=== PATIENT | female | born 1990 | race Caucasian/White ===

== ENCOUNTER → 2017-03-29 | Outpatient (REF) | payer OTHER ==
[~2017-03-29] MED LIST: ACET50TA PO; COLA100C5 PO; FLINCHW9 PO; IBUP60TA PO; MOM30SS PO; MOTR200T44 PO; PREN1TAB11 PO; TYLE325T5 PO
== END ==
LOC: M SFHCWAGY 09:08
PROVIDERS: ATTEND Nurse Practitioner Family
DX: Z12.4 Encounter for screening for malignant neoplasm of cervix (principal)

== ENCOUNTER → 2017-05-02 | Outpatient (REF) | payer OTHER | LOC: M LAB REF 19:33 | DX: J02.9 Acute pharyngitis, unspecified (principal) ==

== ENCOUNTER → 2019-04-07 | Outpatient (REF) | payer OTHER ==
[~2019-04-07] MED LIST changes: -ACET50TA PO; +IBUP600T42 PO; -IBUP60TA PO; +MAPA500T2 PO
== END ==
LOC: M PLALAB 15:06
PROVIDERS: ATTEND Nurse Practitioner Family
DX: Z12.4 Encounter for screening for malignant neoplasm of cervix (principal); R87.612 Low grade squamous intraepithelial lesion on cytologic smear of cervix (LGSIL)
CPT/HCPCS: 87624; G0123

== ENCOUNTER → 2020-07-30 | Outpatient (REF) | payer OTHER ==
[2020-07-30 18:02] LABS: HEMATOCRIT 32.8 % (36.0-47.0); HEMOGLOBIN 10.9 g/dl (12.0-15.5); MEAN CORPUSCULAR HEMOGLOBIN 30.1 pg (27.0-33.0); MEAN CORPUSCULAR HGB CONC 33.2 g/dl (32.0-36.5); MEAN CORPUSCULAR VOLUME 90.6 fl (80.0-96.0); PLATELET COUNT, AUTOMATED 187 10^3/uL (150-450); RED BLOOD COUNT 3.62 10^6/uL (4.00-5.40); WHITE BLOOD COUNT 8.6 10^3/uL (4.0-10.0)
[2020-07-30 18:54] LABS: HEPATITIS C VIRUS ABY INDEX < 0.0 INDEX (<0.8); HIV 1&2 SCREEN CENTAUR NEGATIVE (NEGATIVE)
[2020-07-30 20:31] LABS: CHLAMYDIA DNA AMPLIFICATION NEGATIVE (NEGATIVE); GC DNA AMPLIFICATION NEGATIVE (NEGATIVE)
== END ==
LOC: M PLALAB 15:08
PROVIDERS: ATTEND Advanced Practice Midwife
DX: Z36.89 Encounter for other specified antenatal screening (principal)

== ENCOUNTER → 2020-09-30 | Outpatient (CLI) | payer OTHER | LOC: M WHC 14:20 | PROVIDERS: ATTEND Advanced Practice Midwife | DX: Z53.8 Procedure and treatment not carried out for other reasons (principal) ==

== ENCOUNTER → 2020-10-10 | Outpatient (CLI) | payer OTHER ==
--- NOTE | 2020-10-10 09:03 | REP ---
INDICATION: ANATOMY. COMPARISON: None. TECHNIQUE: Real-time sonographic evaluation of the gravid uterus performed. FINDINGS: Estimated gestational age is19 weeks 4 days, EDC 03/02/2021. Today's measurements indicate appropriate growth. Presentation: Variable Placenta posterior, grade 1, without evidence of placenta previa. heart rate is recorded at 158 beats per minute. Amniotic fluid is subjectively normal. Closed cervical length is measured at 4.7 cm. Biometry chart: BPD: 43 mm, 19 weeks 0 days, 34th percentile. HC: 164 mm, 19 weeks 1 days, 37th percentile AC: 134 mm, 18 weeks 6 days, 36th percentile Femur length: 28 mm, 18 weeks 4 days, 26th percentile HC to AC ratio: 1.22, normal range 1.06-1.25. Estimated weight: 259g, 12th percentile. anatomy: Cranium: Grossly normal Lateral Ventricles/Choroid Plexus: Grossly normal Posterior Fossa/Cerebellum: Grossly normal Nose/lips/profile: Grossly normal Four chamber heart: Not well seen due to position Right ventricular outflow tract: Not well seen due to position Left ventricular outflow tract: Not well seen due to position Left-sided stomach: Grossly normal Kidneys: Grossly normal Bladder: Grossly normal Cord Insertion: Grossly normal 3 vessel cord: Grossly normal Spine: Grossly normal IMPRESSION: Viable single intrauterine gestation as above. <Electronically signed by David Santa > 10/10/20 [id number]
== END ==
LOC: M WHC 07:29
PROVIDERS: ATTEND Advanced Practice Midwife
DX: Z36.89 Encounter for other specified antenatal screening (principal); Z3A.19 19 weeks gestation of pregnancy

== ENCOUNTER → 2020-11-14 | Outpatient (CLI) | payer OTHER ==
--- NOTE | 2020-11-14 08:27 | REP ---
INDICATION: F/U ANATOMY. COMPARISON: Comparison study October 10, 2020.. TECHNIQUE: Transabdominal obstetric sonography. FINDINGS: Scanning through the gravid uterus demonstrates a viable single intrauterine gestation in cephalic lie. motion is observed and heart rate is recorded at 129 beats per minute. A posterior placenta is seen, grade 1, without evidence of placenta previa. Closed cervical length is not well seen due to head position. No extrauterine abnormality is observed. Amniotic fluid is subjectively normal. No anomaly is seen. The following anatomic structures are identified and felt to be sonographically unremarkable: cranium, choroid plexus, cavum, cerebellum and posterior fossa, face and profile, lungs, four-chamber heart with left and right ventricular outflow tract views, diaphragm, left-sided stomach, abdominal wall cord insertion, three-vessel umbilical cord, kidneys and bladder, spine, and upper and lower extremities. Biometry chart: BPD 6.0 cm, 24 weeks 4 days Head circumference 22.6 cm, 24 weeks 5 days Abdominal circumference 19.5 cm, 24 weeks 1 day Femur length 4.3 cm, 24 weeks 0 days Humeral length 3.9 cm, 24 weeks 0 days HC AC ratio normal 1.16 Cephalic index normal 0.73 Estimated weight 671 g, 1 lb 7 oz, 37th percentile for 34 weeks 2 days IMPRESSION: Viable single intrauterine gestation at 24 weeks 2 days by today's composite sonographic criteria. LIANET by today's sonography March 04, 2021. No complication identified. Expected gestational age estimate based on known LIANET of 04 March 2021 is 24 weeks 2 days. In conjunction with the prior study, anatomic survey is felt to be complete. <Electronically signed by Bert Vernon > 11/14/20 2034
== END ==
LOC: M WHC 07:21
PROVIDERS: ATTEND Advanced Practice Midwife
DX: Z34.92 Encounter for supervision of normal pregnancy, unspecified, second trimester (principal); Z3A.24 24 weeks gestation of pregnancy

== ENCOUNTER → 2020-11-27 | Outpatient (CLI) | payer OTHER ==
[2020-11-27 13:45] LABS: HEMATOCRIT 35.6 % (36.0-47.0); HEMOGLOBIN 11.6 g/dl (12.0-15.5); MEAN CORPUSCULAR HGB CONC 32.6 g/dl (32.0-36.5); MEAN CORPUSCULAR VOLUME 95.2 fl (80.0-96.0); PLATELET COUNT, AUTOMATED 154 10^3/uL (150-450); RED BLOOD COUNT 3.74 10^6/uL (4.00-5.40); WHITE BLOOD COUNT 10.4 10^3/uL (4.0-10.0)
== END ==
LOC: M PLALAB 10:05
PROVIDERS: ATTEND Advanced Practice Midwife
DX: Z34.92 Encounter for supervision of normal pregnancy, unspecified, second trimester (principal)

== ENCOUNTER → 2021-01-31 | Outpatient (REF) | payer OTHER | LOC: M SFHCWAGY 17:07 | PROVIDERS: ATTEND Advanced Practice Midwife | DX: Z34.93 Encounter for supervision of normal pregnancy, unspecified, third trimester (principal) ==

== ENCOUNTER 2021-02-22 17:13 | Inpatient (IN) | payer OTHER ==
[~2021-02-22] VITALS: Ht 157.5 cm; Wt 59.7 kg
[2021-02-22] VITALS (27 sets, daily range): BP systolic 114–140; BP diastolic 57–80
[2021-02-22] MEDS ORDERED: HOME MED LIST COMPLETE! XX SCH (17:55)
[2021-02-22] MEDS ORDERED: LACTATED RINGER'S 1000 ML IV STA (18:14)
--- OUTSIDE RECORDS SUMMARY | 2021-02-22 18:14 | CCD ---
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 41809 01 ALLERGIES Allergen (clinical drug ingredient) Drug/Non Drug Allergy do cumented on EMR Reaction Allergy Type Onset Date Status poison rené cont rash Non Drug Allergy Active ENCOUNTERS from 1989 to 2020-11-28 Encounter Location Date Provider Diagnosis [facility] [address] [place] [address] [place] [address] Nov, Rima Hobbssandrine Encounter for sup ervision of other normal in second trimester Z34.82 and 26 weeks gestation of Z3A.26 IMMUNIZATIONS No Information SOCIAL HISTORY Tobacco Use: Social History Observation Description Date Details (start date - stop date) Never Smoker Sex Assigned At : Social History Observation Description Sex Assigned At Unknown Education: Question Answer Notes Level of Education: College Roman Catholic: Question Answer Notes Roman Catholic 21 Yarsani Tobacco Use: Question Answer Notes Are you a: never smoker never smoker REASON FOR REFERRAL No Information VITAL SIGNS Weight 120 lbs Nov, Weight-kg 54.43 kg Nov, Height 62.5 in Nov, BMI 21.599 kg/m2 Nov, Blood pressure systolic 112 mm Hg Nov, Blood pressure diastolic 58 mm Hg Nov, MEDICATIONS Medication SIG (Take, Route, Frequency, Duration) Notes Start Da te End Date Status Azelex 20 % 1 application Externally Twice a day to face for 30 days Sep, Active Iron 325 (65 Fe) MG 1 tablet Orally Once a day Active Multivital-M Not-Taking 27-1 MG 1 tablet Orally Once a day Active ZyrTEC Allergy 10 MG 1 tablet Orally Once a day as needed Not-Taking PROCEDURES No Information RESULTS No Results REASON FOR VISIT 4 wk pn MEDICAL (GENERAL) HISTORY Type Description Date Medical History 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) Medical History seasonal allergies Surgical History bunionectomy right foot 06/16/12 Hospitalization History childbirth Goals Section No Information Health Concerns No Information MEDICAL EQUIPMENT No Information MENTAL STATUS No Information FUNCTIONAL STATUS No Information ASSESSMENTS Encounter Date Diagnosis Assessment Notes Treatment Notes Treatm ent Clinical Notes Nov, Encounter for supervision of other normal in second trimester (ICD-10 - Z34.82) Nov, 26 weeks gestation of (ICD-10 - Z3A.26 ) PLAN OF TREATMENT Next Appt Details 4 Weeks Reason:- Routine follow up Provider Name:Rah Swan, 11:00:00 AM, [address] [facility] [phone], [place], [address], Provider Name:Seble Colvin, 01:45:00 PM, [address] [facility], , [place], [address], Follow Up:4 Weeks- Routine follow up Insurance Providers Payer Name Payer Address Payer Phone Insured Name Patient Relati onship to Insured Coverage Start Date Coverage End Date [facility] [address] [address] [facility] [phone] MERCEDES PAUL self
--- OUTSIDE RECORDS SUMMARY | 2021-02-22 18:14 | CCD ---
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 confirmed 115028595 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 06503 01 ALLERGIES Allergen (clinical drug ingredient) Drug/Non Drug Allergy do cumented on EMR Reaction Allergy Type Onset Date Status poison rené cont rash Non Drug Allergy Active ENCOUNTERS from 1989 to 2021-01-31 Encounter Location Date Provider Diagnosis [facility] [address] [place] [address] [place] [address] Jan, Margareth Salazar Encounter for superv ision of normal in third trimester Z34.93 IMMUNIZATIONS No Information SOCIAL HISTORY Tobacco Use: Social History Observation Description Date Details (start date - stop date) Never Smoker Sex Assigned At : Social History Observation Description Sex Assigned At Unknown Education: Question Answer Notes Level of Education: College Baptism: Question Answer Notes Baptism 21 Caodaism Alcohol Screening: Question Answer Notes Did you have a drink containing alcohol in the past year? No Points 0 Interpretation Negative Tobacco Use: Question Answer Notes Are you a: never smoker never smoker REASON FOR REFERRAL No Information VITAL SIGNS Weight 131.2 lbs Jan, Weight-kg 59.51 kg Jan, Height 62.5 in Jan, BMI 23.614 kg/m2 Jan, Blood pressure systolic 114 mm Hg Jan, Blood pressure diastolic 60 mm Hg Jan, MEDICATIONS Medication SIG (Take, Route, Frequency, Duration) Notes Start Da te End Date Status Azelex 20 % 1 application Externally Twice a day to face for 30 days Sep, Active ZyrTEC Allergy 10 MG 1 tablet Orally Once a day as needed Not-Taking Iron 325 (65 Fe) MG 1 tablet Orally Once a day Active 27-1 MG 1 tablet Orally Once a day Active Multivital-M Not-Taking PROCEDURES No Information RESULTS No Results REASON FOR VISIT 2 WK PN MEDICAL (GENERAL) HISTORY Type Description Date Medical [...] Notes Treatment Notes Treatm ent Clinical Notes Jan, Encounter for supervision of normal in third trimester (ICD-10 - Z34.93) PLAN OF TREATMENT Treatment Notes Test Name Order Date GROUP B STREP CULTURE 2021-01-31 Next Appt Details 1 Week Reason: Provider Name:Nika Linn, 2021-02-07 02:40:00 PM, [address] [place] [address] , [place], [address], Provider Name:Seble Colvin, 01:00:00 PM, [address] [place] [address], , [place], [address], Provider Name:Con Velázquez, 2021-02-14 01:15:00 PM, [address] [place] [address] , [place], [address], Provider Name:Nika Linn, 2021-02-21 01:40:00 PM, [address] [place], [place] [id number], [place], [address], Provider Name:Nika Linn, 2021-02-28 01:40:00 PM, [address] [facility], , [place], [address], Provider Name:Seble Colvin, 01:45:00 PM, [address] [facility], , [place], [address], Insurance Providers Payer Name Payer Address Payer Phone Insured Name Patient Relati onship to Insured Coverage Start Date Coverage End Date [facility] [address] [address] [facility] [phone] MERCEDES PAUL self
--- OUTSIDE RECORDS SUMMARY | 2021-02-22 18:14 | CCD ---
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 04716 01 ALLERGIES Allergen (clinical drug ingredient) Drug/Non Drug Allergy do cumented on EMR Reaction Allergy Type Onset Date Status poison rené cont rash Non Drug Allergy Active ENCOUNTERS from 1989 to 2021-01-07 Encounter Location Date Provider Diagnosis [facility] [address] [place] [address] [place] [address] Dec, Rah Swan Encounter for pregna ncy related examination in third trimester Z34.93 and 31 weeks gestation of Z3A.31 IMMUNIZATIONS No Information SOCIAL HISTORY Tobacco Use: Social History Observation Description Date Details (start date - stop date) Never Smoker Sex Assigned At : Social History Observation Description Sex Assigned At Unknown Education: Question Answer Notes Level of Education: College Taoism: Question Answer Notes Taoism 21 Mormon Tobacco Use: Question Answer Notes Are you a: never smoker never smoker REASON FOR REFERRAL No Information VITAL SIGNS Weight 126.2 lbs Dec, Height 62.5 in Dec, BMI 22.714 kg/m2 Dec, Blood pressure systolic 110 mm Hg Dec, Blood pressure diastolic 70 mm Hg Dec, MEDICATIONS Medication SIG (Take, Route, Frequency, Duration) Notes Start Da te End Date Status Multivital-M Not-Taking Iron 325 (65 Fe) MG 1 tablet Orally Once a day Active Azelex 20 % 1 application Externally Twice a day to face for 30 days Sep, Active ZyrTEC Allergy 10 MG 1 tablet Orally Once a day as needed Not-Taking 27-1 MG 1 tablet Orally Once a day Active PROCEDURES No Information RESULTS No Results REASON [...] Notes Treatment Notes Treatm ent Clinical Notes Dec, Encounter for rela idalia examination in third trimester (ICD-10 - Z34.93) Dec, 31 weeks gestation of (ICD-10 - Z3A.31 ) PLAN OF TREATMENT Next Appt Details 2 Weeks Reason:PN Provider Name:Margareth Salazar, 2021-01-17 0 2:00:00 PM, [facility] [phone], [place], [address], Provider Name:Seble Covlin, 01:00:00 PM, [address] [place] [address] , [place], [address], Provider Name:Seble Colvin, 01:45:00 PM, [address] [place] [address] , [place], [address], Follow Up:2 WeeksPN Insurance Providers Payer Name Payer Address Payer Phone Insured Name Patient Relati onship to Insured Coverage Start Date Coverage End Date [facility] [address] [address] [facility] [phone] MERCEDES PAUL self
--- OUTSIDE RECORDS SUMMARY | 2021-02-22 18:14 | CCD ---
Author Author [facility] Organization [facility] Address Unknown Phone Unavailable Care Team Providers Care Pulverizer Tender Name Role Phone DIXON, LINK TEOFILO COUNTER INTELLIGENCE TECHNICIAN Unavailable Unavailable DIXON, LINK TEOFILO COUNTER INTELLIGENCE TECHNICIAN Unavailable Unavailable DIXON, LINK TEOFILO COUNTER INTELLIGENCE TECHNICIAN Unavailable Unavailable DIXON, LINK TEOFILO COUNTER INTELLIGENCE TECHNICIAN Unavailable Unavailable DIXON, LINK TEOFILO COUNTER INTELLIGENCE TECHNICIAN Unavailable Unavailable DIXON, LINK TEOFILO COUNTER INTELLIGENCE TECHNICIAN Unavailable Unavailable DIXON, LINK TEOFILO COUNTER INTELLIGENCE TECHNICIAN Unavailable Unavailable DIXON, LINK TEOFILO COUNTER INTELLIGENCE TECHNICIAN Unavailable Unavailable DIXON, LINK TEOFILO COUNTER INTELLIGENCE TECHNICIAN Unavailable Unavailable DIXON, LINK TEOFILO COUNTER INTELLIGENCE TECHNICIAN Unavailable Unavailable DIXON, LINK TEOFILO COUNTER INTELLIGENCE TECHNICIAN Unavailable Unavailable DIXON, LINK TEOFILO COUNTER INTELLIGENCE TECHNICIAN Unavailable Unavailable DIXON, LINK TEOFILO COUNTER INTELLIGENCE TECHNICIAN Unavailable Unavailable DIXON, LINK TEOFILO COUNTER INTELLIGENCE TECHNICIAN Unavailable Unavailable DIXON, LINK TEOFILO COUNTER INTELLIGENCE TECHNICIAN Unavailable Unavailable DIXON, LINK TEOFILO COUNTER INTELLIGENCE TECHNICIAN Unavailable Unavailable DIXON, LINK TEOFILO COUNTER INTELLIGENCE TECHNICIAN Unavailable Unavailable DIXON, LINK TEOFILO COUNTER INTELLIGENCE TECHNICIAN Unavailable Unavailable DIXON, LINK TEOFILO COUNTER INTELLIGENCE TECHNICIAN Unavailable Unavailable DIXON, LINK TEOFILO COUNTER INTELLIGENCE TECHNICIAN Unavailable Unavailable DIXON, LINK TEOFILO COUNTER INTELLIGENCE TECHNICIAN Unavailable Unavailable DIXON, LINK TEOFILO COUNTER INTELLIGENCE TECHNICIAN Unavailable Unavailable DIXON, LINK TEOFILO COUNTER INTELLIGENCE TECHNICIAN Unavailable Unavailable Re-disclosure Warning The records that you are about to access may contain information from federally-assisted alcohol or drug abuse programs. If such information is present, then the following federally mandated warning applies: This information has been disclosed to you from records protected by federal confidentiality rules (42 CFR part 2). The federal rules prohibit you from making any further disclosure of this information unless further disclosure is expressly permitted by the written consent of the person to whom it pertains or as otherwise permitted by 42 CFR part 2. A general authorization for the release of medical or other information is NOT sufficient for this purpose. The Federal rules restrict any use of the information to criminally investigate or prosecute any alcohol or drug abuse patient.The records that you are about to access may contain highly sensitive health information, the redisclosure of which is protected by Article 27-F of the [facility] Public Health law. If you continue you may have access to information: Regarding HIV / AIDS; Provided by facilities licensed or operated by the [facility] Office of Mental Health; or Provided by the [facility] Office for People With Developmental Disabilities. If such information is present, then the following [facility] mandated warning applies: This information has been disclosed to you from confidential records which are protected by state law. State law prohibits you from making any further disclosure of this information without the specific written consent of the person to whom it pertains, or as otherwise permitted by law. Any unauthorized further disclosure in violation of state law may result in a fine or fci sentence or both. A general authorization for the release of medical or other information is NOT sufficient authorization for further disc losure. Family History Family Member Name Family Member Gender Family Member Status Date o f Status Description Data Source(s) Unknown Unknown Problem MEDENT ([facility]) mother's side Encounters Encounter Providers Location Date Indications Data Source(s ) ( ESTOB) enter Est OB [address] [place] [address] 01/31/2021 12:00:00 AM EDT eCW1 ([facility]) ( ESTOB) [facility] Est OB [address] [place] [address] 01/17/2021 12:00:00 AM EDT eCW1 ([facility]) ( ESTOB) [facility] Est OB [address] [place] [address] 01/03/2021 12:00:00 AM EDT eCW1 ([facility]) ( ESTOB) [facility] Est OB [address] [place] [address] 11/27/2020 12:00:00 AM EDT eCW1 ([facility]) ( ESTOB) [facility] Est OB [address] [place] [address] 10/30/2020 12:00:00 AM EDT eCW1 ([facility]) Outpatient [address] [facility] [address] 10/02/2020 12:00:00 AM EDT eCW1 ([facility]) ( ESTOB) [facility] Est OB [address] [place] [address] 08/27/2020 12:00:00 AM EDT eCW1 ([facility]) Unknown [address] [facility] [address] 07/31/2020 12:00:00 AM EDT eCW1 ([facility]) ( 1PN) [facility] 1st [address] [place] [address] 07/30/2020 12:00:00 AM EDT eCW1 ([facility]) Outpatient Attender: TEOIFLO DIXON COUNTER INTELLIGENCE TECHNICIAN 021 09:42:00 AM EST - 06/11/2020 09:42:00 AM EST [facility] Medications Medication Brand Name Start Date Product Form Dose Route Admi nistrative Instructions Pharmacy Instructions Status Indications Reaction Description Data Source(s) 20 % 10/03/2020 12:00:00 AM EDT cream 30 APPLY TWO TIMES A DAY TO FACE EXTERNALLY APPLY TWO TIMES A DAY TO FACE EXTERNALLY SOLD: 10/04/2020 [facility] azelaic acid 200 MG/ML Topical Cream [Azelex] Azelex 20 % Az elex 20 % 10/02/2020 12:00:00 AM EDT 1.0 {application} active Azelex 20 % eCW1 ([facility]) azelaic acid 200 MG/ML Topical Cream [Azelex] Azelex 20 % Az elex 20 % 10/02/2020 12:00:00 AM EDT 1.0 {application} active Azelex 20 % eCW1 ([facility]) azelaic acid 200 MG/ML Topical Cream [Azelex] Azelex 20 % Az elex 20 % 10/02/2020 12:00:00 AM EDT 1.0 {application} active Azelex 20 % eCW1 ([facility]) azelaic acid 200 MG/ML Topical Cream [Azelex] Azelex 20 % Az elex 20 % 10/02/2020 12:00:00 AM EDT 1.0 {application} active Azelex 20 % eCW1 ([facility]) azelaic acid 200 MG/ML Topical Cream [Azelex] Azelex 20 % Az elex 20 % 10/02/2020 12:00:00 AM EDT 1.0 {application} active Azelex 20 % eCW1 ([facility]) azelaic acid 200 MG/ML Topical Cream [Azelex] Azelex 20 % Az elex 20 % 10/02/2020 12:00:00 AM EDT 1.0 {application} active Azelex 20 % eCW1 ([facility]) azelaic acid 200 MG/ML Topical Cream [Azelex] Azelex 20 % Az elex 20 % 10/02/2020 12:00:00 AM EDT 1.0 {application} active Azelex 20 % eCW1 ([facility]) Insurance Providers Payer name Policy type / Coverage type Policy ID Covered libertarian ID Covered libertarian's relationship to pearson Policy Pearson Plan Information BCBS [facility]I [facility] [id number] [facility] [id number] SP [id number] [facility] [id number] 18 [id number] [facility] [id number] SP [id number] ANSI-Commercial [id number] [facility] [place] Commercial [id number] Family Dependent [id number] ANSI-Commercial [id number] [facility] [id number] [facility] [id number] Family Dependent [id number] [facility] [id number] [id number] SELF PAY O [id number] S [id number] [employer] [place] [id number] SPO [id number] [employer] [place] MILES DIV [id number] [id number] [facility] [id number] SP [id number] Problems, Conditions, and Diagnoses Code Display Name Description Problem Type Effective Dates Data Source(s) A11328 Encounter for gynecological examination (general) (routine) without abnormal findings Encounter for gynecological examination (general) (routine) without abnormal findings Diagnosis 06/11/2020 09:42:[address] [facility] D18.01 [id number] [place]caraz angioma Problem 10/01/2020 12:00:00 A M EDT eCW1 ([facility]) D22.9 [id number] Multiple benign nevi Problem 10/01/2020 12:0 0:00 AM EDT eCW1 ([facility]) Z12.83 [id number] Screening, malignant neoplasm, skin Probl em 10/01/2020 12:00:00 AM EDT eCW1 ([facility]) Z34.80 care Supervision of other normal P renettarosi 07/08/2020 12:00:00 AM EDT eCW1 ([facility]) Surgeries/Procedures No Information Results ID Date Data Source WWBC OBS FOLLOW UP OR REPEAT 11/14/2020 12:00:00 AM EDT eCW1 ([facility]) Name Value Range Interpretation Code Description Data Alem rce(s) Supporting Document(s) WWBC OBS FOLLOW UP OR REPEAT e CW1 ([facility]) ID Date Data Source HBSAG 07/30/2020 12:00:00 AM EDT eCW1 ([facility]) Name Value Range Interpretation Code Description Data Alem rce(s) Supporting Document(s) NEGATIVE NEGATIVE HBsAg eCW1 ([facility]) ID Date Data Source HEPATITIS C ANTIBODY INDEX 07/30/2020 12:00:00 AM EDT eCW1 ( [facility]) Name Value Range Interpretation Code Description Data Alem rce(s) Supporting Document(s) < 0.0 <0.8 HEPATITIS C VIRUS MIMA IND EX eCW1 ([facility]) ID Date Data Source URINE CULTURE 07/30/2020 12:00:00 AM EDT eCW1 ([facility]) Name Value Range Interpretation Code Description Data Alem rce(s) Supporting Document(s) URINE CULTURE eCW1 ([facility]) ID Date Data Source RUBELLA IMMUNE STATUS IgG 07/30/2020 12:00:00 AM EDT eCW1 ([facility]) Name Value Range Interpretation Code Description Data Alem rce(s) Supporting Document(s) IMMUNE IMMUNE RUBELLA IgG QUALITATIVE eCW1 ( [facility]) ID Date Data Source SYPHILIS ANTIBODY (RPR SCREEN) 07/30/2020 12:00:00 AM EDT eC W1 ([facility]) Name Value Range Interpretation Code Description Data Alem rce(s) Supporting Document(s) NONREACTIVE NONREACTIVE SYPHILIS eCW1 ([facility]) ID Date Data Source [id number] 07/30/2020 12:00:00 AM EDT eCW1 ([facility]) Name Value Range Interpretation Code Description Data Alem rce(s) Supporting Document(s) HIV 1&2 ANTIBODY SCREEN eCW1 ( [facility]) ID Date Data Source CHLAMYDIA & GC DNA AMPLIFICAT 07/30/2020 12:00:00 AM EDT eCW 1 ([facility]) Name Value Range Interpretation Code Description Data Alem rce(s) Supporting Document(s) Chlamydia trachomatis rRNA [Presence] in Unspecified specimen by Probe and target amplification method NEGATIVE NEGATIVE CHLAMYDIA DNA AMPLIFICATION eCW1 ([facility]) ID Date Data Source CBC - Complete Blood Count 07/30/2020 12:00:00 AM EDT eCW1 ( [facility]) Name Value Range Interpretation Code Description Data Alem rce(s) Supporting Document(s) 8.6 4.0-10.0 WHITE BLOOD COUNT eCW1 ([facility]) 3.62 4.00-5.40 RED BLOOD COUNT eCW1 ([facility]) 32.8 36.0-47.0 HEMATOCRIT eCW1 ([facility]) 10.9 12.0-15.5 HEMOGLOBIN eCW1 ([facility]) 12.2 11.5-14.5 RED CELL DISTRIBUTION WID TH eCW1 ([facility]) 30.1 27.0-33.0 MEAN CORPUSCULAR HEMOGLOB IN eCW1 ([facility]) 33.2 32.0-36.5 MEAN CORPUSCULAR HGB CONC eCW1 ([facility]) 90.6 80.0-96.0 MEAN CORPUSCULAR VOLUME e CW1 ([facility]) 187 150-450 PLATELET COUNT, AUTOMATED eCW1 ([facility]) ID Date Data Source Type and Screen Prenatal1 07/30/2020 12:00:00 AM EDT eCW1 ([facility]) Name Value Range Interpretation Code Description Data Alem rce(s) Supporting Document(s) NEGATIVE AB SCREEN PNP1 GEL (VIS) eCW1 ([facility]) Procedure Social History Code Duration Value Status Description Data Source(s ) Smoking 01/31/2021 12:00:00 AM EDT Never Smoker completed Never S moker eCW1 ([facility]) Smoking 01/17/2021 12:00:00 AM EDT Never Smoker completed Never S moker eCW1 ([facility]) Smoking 01/03/2021 12:00:00 AM EDT Never Smoker completed Never S moker eCW1 ([facility]) Smoking 11/25/2020 12:00:00 AM EDT Never Smoker completed Never S moker eCW1 ([facility]) Smoking 10/28/2020 12:00:00 AM EDT Never Smoker completed Never S moker eCW1 ([facility]) Smoking 10/11/2020 12:00:00 AM EDT Never Smoker completed Never S moker eCW1 ([facility]) Smoking 10/02/2020 12:00:00 AM EDT Never Smoker completed Never S moker eCW1 ([facility]) Smoking 08/26/2020 12:00:00 AM EDT Never Smoker completed Never S moker eCW1 ([facility]) Smoking 07/30/2020 12:00:00 AM EDT Never Smoker completed Never S moker eCW1 ([facility]) Vital Signs ID Date Data Source UNK Name Value Range Interpretation Code Description Data Source(s) Body weight 131.2 [lb_av] 131.2 [lb_av] eCW1 ([facility]) Body weight 59.51 kg 59.51 kg W1 ([facility]) Body height 62.5 [in_i] 62.5 [in_i] eCW1 ([facility]) Body mass index (BMI) [Ratio] 23.614 kg/m2 23.6 14 kg/m2 eCW1 ([facility]) Systolic blood pressure 114 mm[Hg] 114 mm[Hg] e CW1 ([facility]) Diastolic blood pressure 60 mm[Hg] 60 mm[Hg] eCW1 ([facility]) Body mass index (BMI) [Ratio] 23.002 kg/m2 23.0 02 kg/m2 eCW1 ([facility]) Systolic blood pressure 112 mm[Hg] 112 mm[Hg] e CW1 ([facility]) Diastolic blood pressure 70 mm[Hg] 70 mm[Hg] eCW1 ([facility]) Body weight 127.8 [lb_av] 127.8 [lb_av] eCW1 ([facility]) Body weight 57.97 kg 57.97 kg eCW1 ([facility]) Body height 62.5 [in_i] 62.5 [in_i] eCW1 ([facility]) Body weight 126.2 [lb_av] 126.2 [lb_av] eCW1 ([facility]) Body height 62.5 [in_i] 62.5 [in_i] eCW1 ([facility]) Body mass index (BMI) [Ratio] 22.714 kg/m2 22.7 14 kg/m2 eCW1 ([facility]) Systolic blood pressure 110 mm[Hg] 110 mm[Hg] e CW1 ([facility]) Diastolic blood pressure 70 mm[Hg] 70 mm[Hg] eCW1 ([facility]) Body weight 120 [lb_av] 120 [lb_av] eCW1 ([facility]) Body weight 54.43 kg 54.43 kg eCW1 ([facility]) Body height 62.5 [in_i] 62.5 [in_i] eCW1 ([facility]) Body mass index (BMI) [Ratio] 21.599 kg/m2 21.5 99 kg/m2 eCW1 ([facility]) Systolic blood pressure 112 mm[Hg] 112 mm[Hg] e CW1 ([facility]) Diastolic blood pressure 58 mm[Hg] 58 mm[Hg] eCW1 ([facility]) Body weight 116.4 [lb_av] 116.4 [lb_av] eCW1 ([facility]) Body height 62.5 [in_i] 62.5 [in_i] eCW1 ([facility]) Body mass index (BMI) [Ratio] 20.951 kg/m2 20.9 51 kg/m2 eCW1 ([facility]) Systolic blood pressure 106 mm[Hg] 106 mm[Hg] e CW1 ([facility]) Diastolic blood pressure 60 mm[Hg] 60 mm[Hg] eCW1 ([facility]) Body weight 111.8 [lb_av] 111.8 [lb_av] eCW1 ([facility]) Body height 62.5 [in_i] 62.5 [in_i] eCW1 ([facility]) Body mass index (BMI) [Ratio] 20.12 kg/m2 20.12 kg/m2 eCW1 ([facility]) Systolic blood pressure 108 mm[Hg] 108 mm[Hg] e CW1 ([facility]) Diastolic blood pressure 62 mm[Hg] 62 mm[Hg] eCW1 ([facility]) Body weight 107.2 [lb_av] 107.2 [lb_av] eCW1 ([facility]) Body weight 48.63 kg 48.63 kg eCW1 ([facility]) Body height 62.5 [in_i] 62.5 [in_i] eCW1 ([facility]) Body mass index (BMI) [Ratio] 19.295 kg/m2 19.2 95 kg/m2 eCW1 ([facility]) Systolic blood pressure 112 mm[Hg] 112 mm[Hg] e CW1 ([facility]) Diastolic blood pressure 62 mm[Hg] 62 mm[Hg] eCW1 ([facility]) Body weight 103.2 [lb_av] 103.2 [lb_av] eCW1 ([facility]) Body weight 46.81 kg 46.81 kg eCW1 ([facility]) Body height 62.5 [in_i] 62.5 [in_i] eCW1 ([facility]) Body mass index (BMI) [Ratio] 18.575 kg/m2 18.5 75 kg/m2 eCW1 ([facility]) Systolic blood pressure 118 mm[Hg] 118 mm[Hg] e CW1 ([facility]) Diastolic blood pressure 62 mm[Hg] 62 mm[Hg] eCW1 ([facility]) Patient Treatment Plan of Care Planned Activity Planned Date Details Description Data Source (s) azelaic acid 200 MG/ML Topical Cream [Azelex] 10/02/2020 12:00:00 A M EDT eCW1 ([facility]) azelaic acid 200 MG/ML Topical Cream [Azelex] 10/02/2020 12:00:00 A M EDT eCW1 ([facility])
--- OUTSIDE RECORDS SUMMARY | 2021-02-22 18:14 | CCD ---
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 50875 01 ALLERGIES Allergen (clinical drug ingredient) Drug/Non Drug Allergy do cumented on EMR Reaction Allergy Type Onset Date Status poison rené cont rash Non Drug Allergy Active ENCOUNTERS from 1989 to 2021-01-17 Encounter Location Date Provider Diagnosis [facility] [address] [place] [address] [place] [address] Jan, Margareth Salazar Encounter for superv ision of normal in third trimester Z34.93 IMMUNIZATIONS No Information SOCIAL HISTORY Tobacco Use: Social History Observation Description Date Details (start date - stop date) Never Smoker Sex Assigned At : Social History Observation Description Sex Assigned At Unknown Education: Question Answer Notes Level of Education: College Holiness: Question Answer Notes Holiness 21 [employer] Tobacco Use: Question Answer Notes Are you a: never smoker never smoker REASON FOR REFERRAL No Information VITAL SIGNS Weight 127.8 lbs Jan, Weight-kg 57.97 kg Jan, Height 62.5 in Jan, BMI 23.002 kg/m2 01 Oct, 2021 Blood pressure systolic 112 mm Hg Jan, Blood pressure diastolic 70 mm Hg Jan, MEDICATIONS Medication SIG (Take, Route, Frequency, Duration) Notes Start Da te End Date Status Multivital-M Not-Taking 27-1 MG 1 tablet Orally Once a day Active ZyrTEC Allergy 10 MG 1 tablet Orally Once a day as needed Not-Taking Azelex 20 % 1 application Externally Twice a day to face for 30 days Sep, Active Iron 325 (65 Fe) MG 1 tablet Orally Once a day Active PROCEDURES No Information RESULTS No Results REASON FOR VISIT 2WK PN MEDICAL (GENERAL) HISTORY Type Description Date [...] trimester (ICD-10 - Z34.93) PLAN OF TREATMENT Next Appt Details 2 Weeks Reason: Provider Name:Margareth Salazar, 2021-01-31 0 1:40:00 PM, [address] [facility] [phone], [place], [address], Provider Name:Seble Colvin, 01:00:00 PM, [address] [place] [address] , [place], [address], Provider Name:Seble Colvin, 01:45:00 PM, [address] [place] [address] , [place], [address], Insurance Providers Payer Name Payer Address Payer Phone Insured Name Patient Relati onship to Insured Coverage Start Date Coverage End Date [facility] [address] [address] [facility] [id number] [employer] PAUL self
[2021-02-22] MEDS ORDERED: LIDOCAINE 1% MDV 20ML VIAL INFIL PRN (18:15)
[2021-02-22] MEDS ORDERED: TRANEXAMIC ACID INJection 1,000 MG in NS 100 ML IV PRN (18:15)
[2021-02-22] MEDS ORDERED: LR 1,000 ML IV SCH ×2 (18:15→23:15)
--- NOTE | 2021-02-22 18:34 | HPEPDOC ---
Obstetrical History & Physical General Date of Admission Feb 22, 2021 at 18:10 Primary Care Physician: ABDULAZIZ SYKES DO History of Present Illness Grecia is a 30 year old at 38 4/7 with an LIANET of 03/04/21 confirmed by first trimester ultrasound. She established care at [facility] and her has been uncomplicated. Patient reports regular painful uterine contractions that began at 1pm today, reported as increasing in frequency and intensity. She has noted good movement and bloody show and denies loss of fluids. Patient is requesting epidural for pain management. Chief Complaint: Contractions, term Information Provided By: Patient Age: 27 : 3 Term: 2 Pre-term: 0 Abortions: 0 Livin Care Care: Good Care Dating Final EDC: Mar 04, 2021 Final EDC by: LMP, 1st trimester (US) LMP: May 08, 2020 1st Trimester Date: Jul 30, 2020 EGA at Admission: 38.4 Antepartum Course Height (inches): 62 Pre- weight (lbs.): 103. Admission Weight (lbs.): 133.6 Change in Weight (lbs.): 29.4 Past Medical History Past Obstetrical History #1: Past Obstetrical History: Primgravida Date of Delivery: Mar 24, 2014 Gestation: 41.1 Type of Delivery: Spontaneous Vaginal Del. Sex of Infant: Male (6# 9oz) Complications: No (used clomid to conceive) Past Obstetrical History #2: Past Obstetrical History: Multigravida Date of Delivery: Oct 08, 2015 Gestation: 40.1 Type of Delivery: Spontaneous Vaginal Del. Sex of : Female (7# 12oz) Complications: No DIRECTOR OF COMPLIANCE History: No pertinent history, Other Past Medical History Medical History noncontributory Surgical History: Other (bunionectomy, right) Family History Family History father, age 56, heart disease mother, age 55, DM1, liver disease Social History Marital Status: Family situation: Spouse/partner home Psychosocial History: No pertinent psych hx * Smoker: non-smoker Alcohol: Denies Drugs: denies Abuse Violence Screening Have you been hit/kicked/slapp: No Have you been sexually assault: No Imunizations Tdap status: declined Influenza Status: declined Allergies Uncoded Allergies: POISON MARILOU (Allergy, Intermediate, 02/22/21) Medications Scheduled Vit No.124/Iron/Folic ( Vitamin Tablet) 1 Tab Tab, 1 TAB PO DAILY Physical Examination Physical Examination GENERAL: Alert and oriented times three. ABDOMEN: Gravid and non-tender to touch. FETUS: Is vertex (VTX) by sterile vaginal examination (SVE), fetus is vertex (VTX) by Sylvain. HEART RATE: Regular rate and rhythm. LUNGS: breathing comfortably on room air, no use of accessory muscles. EXTREMITIES: mild bilateral pedal edema. No clonus. Vital Signs/I&O Vital Signs Date Time Temp Pulse Resp B/P (MAP) Pulse Ox O2 Delivery O2 Flow Rate FiO2 02/22/21 17:40 98.8 93 18 128/80 (96) 98 Room Air Laboratory Data 24H LABS Laboratory Tests 2 02/22/21 18:18: Serology Scanned Report Hepatitis B Testing Pertinent Laboratoy Data Blood Type: A+ RBC Antibody Screen: Negative HIV: Negative Hepatitis B: Negative Hepatitis C: Negative Rapid Plasma Reagin: Nonreactive Rubella: Immune Varicella: Immune Chlamydia/Gonorrhea: Negative Group B Streptococcus: Negative Quad Screen Test: Declined Cystic Fibrosis: Declined Glucose Tolerance Test: 116 Anatomy Ultrasound Ultrasound Date: Sep 30, 2020 Placenta Location: Posterior Normal Anatomy: Yes Placenta Previa: No Estimated Weight (grams): 259 Steroid Therapy Steroid Therapy: No Vaginal Examination Dilation: 5 cm Effacement: 80% Station: 0 Cervical Consistency: Soft Cervical Position: Anterior Presentation: Cephalic presentation Assessment Heart Rate (FHR): 140 Variability: Moderate Accelerations: Positive Decelerations: None Tocometer Contractions: Yes Frequency: regular, every 2-5 min. Strength: palpated as strong Multi-drug resistant Organism: No history of MDRO Assessment/Plan Assessment IUP at 38 4/7, Class 1 Tracing. Maternal and status reassuring. Plan Admit to labor and delivery. Diet: regular. Group B Streptococcus (GBS) negative. Labs and intravenous (IV) per unit protocol. Anesthesia consult per patient request. Lactated Ringers (LR): Bolus 800 mL prior to epidural, then at 125 mL/hr. Anticipate normal spontaneous delivery (). C-S as appropriate. ABDULAZIZ SYKES DO Feb 22, 2021 18:34
[2021-02-22 19:08] LABS: HEMOGLOBIN 12.4 g/dl (12.0-15.5); MEAN CORPUSCULAR HEMOGLOBIN 30.8 pg (27.0-33.0); MEAN CORPUSCULAR HGB CONC 33.5 g/dl (32.0-36.5); MEAN CORPUSCULAR VOLUME 91.8 fl (80.0-96.0); PLATELET COUNT, AUTOMATED 140 10^3/uL (150-450); RED BLOOD COUNT 4.03 10^6/uL (4.00-5.40); WHITE BLOOD COUNT 12.2 10^3/uL (4.0-10.0)
[2021-02-22] MEDS ORDERED: FENTANYL 2MCG/ML ROPIVACAINE 0.2% IN 0.9% NACL 100ML IVBAG As Ordered ONE (19:27)
[2021-02-22] MEDS ORDERED: FENTANYL/ROPIVACAINE/NACL BAG 100 ML EPIDURAL SCH (20:30)
[2021-02-22] MEDS ORDERED: EPIDURAL/PCA KEYS XX PRN (20:30)
[2021-02-22] MEDS ORDERED: ePHEDrine SULFATE 25 MG/5 ML(5MG/ML) SYRINGE IV PRN (20:30)
[2021-02-22] MEDS ORDERED: EPIDURAL COMMENT XX SCH (20:30)
[2021-02-22] MEDS ORDERED: diphenhydrAMINE 50MG/ML VIAL (J1200) IV PRN (20:30)
[2021-02-22] MEDS ORDERED: REFRIGERATOR IV KEYS XX PRN (20:30)
[2021-02-22] MEDS ORDERED: NALOXONE INJ 0.4MG/1ML VIAL (J2310 PER 1MG) IV PRN (20:30)
[2021-02-22] MEDS ORDERED: ONDANSETRON 4MG/2ML VIAL IV PRN ×2 (20:30→23:15)
[2021-02-22] MEDS ORDERED: LACTATED RINGER'S 1000 ML IV PRN (20:30)
--- NOTE | 2021-02-22 22:10 | IPNPDOC ---
Obstetrical Progress Note Date of Service Feb 22, 2021 Subjective Comfortable with epidural. Objective Vital Signs Date Time Temp Pulse Resp B/P (MAP) Pulse Ox O2 Delivery O2 Flow Rate FiO2 02/22/21 21:36 85 18 117/65 (82) 02/22/21 19:44 97.9 02/22/21 17:40 98 Room Air Assessment Heart Rate (FHR): 145 Variability: Moderate Accelerations: Positive Decelerations: None Heart Rate Tracing: Category I Tocometer Contractions: Yes Frequency: regular Duration: less than 60 seconds Strength: palpated as strong Sterile Vaginal Examination Dilation: 8 cm Effacement (%): 90% Station: 0 Cervical Consistency: Soft Cervical Position: Anterior Postion/Presentation: Cephalic presentation Assessment and Plan Age: 30 : 3 Term: 2 Pre-term: 0 Abortions: 0 Livin EGA at Admission: 38.4 Status: Reassuring Group B Streptococcus: Negative Anticipate: Vaginal Delivery Additional Comments AROM with consent, large amount of clear fluid. ABDULAZIZ SYKES DO Feb 22, 2021 22:10
[2021-02-22] MEDS ORDERED: OXYTOCIN 30 UNITS IN 0.9% NaCl 500ML IV BAG (J2590) As Ordered ONE (22:26)
[2021-02-22] MEDS ORDERED: OXYTOCIN DRIP 30 UNITS in IV 1 EA IV SCH ×2 (22:30→23:15)
[2021-02-22] MEDS ORDERED: MEASLES,MUMPS,RUBELLA VACCINE INJ (MMR-II) (90707) SC SCH (23:15)
[2021-02-22] MEDS ORDERED: DOCUSATE SODIUM 100MG CAPSULE PO PRN (23:15)
[2021-02-22] MEDS ORDERED: ACETAMINOPHEN 500 MG TAB PO PRN (23:15)
[2021-02-22] MEDS ORDERED: RHOGAM 300 MCG (1500 IU) INJ (J2790) IM SCH (23:15)
--- NOTE | 2021-02-22 23:24 | DNPDOC ---
[facility] Delivery Note Delivery Note DATE OF DELIVERY: 02/22/2021 PREDELIVERY DIAGNOSIS: 38-4/7 weeks' gestation and labor. POST DELIVERY DIAGNOSIS: Delivered. PROCEDURE: Spontaneous vaginal delivery @2258. 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 Abdulaziz Swan with [facility] ANESTHESIA: epidural. ESTIMATED BLOOD LOSS: 300 mL. FINDINGS: 6 pound 11 ounce 3020 gram male , Score 6 and 8. DELIVERY SUMMARY: Grecia is a 30-year-old 2 now para 2001 who was admitted to labor and delivery in active labor. She received an epidural for pain management. Her labor was augmented with AROM at 2204. She was fully at 2244 and pushed to a living male at 2258 in MICHELLE with restitution to ROT. The anterior shoulder was delivered with gentle downward guidance and the corpus followed without difficulty. The was placed on the maternal abdomen and crying with stimulation. The three vessel cord was clamped after 2 minutes and cut by the father of the baby. The placenta was delivered via Urbano at 2304. The cervix, vagina and perineum was inspected and right labial abrasion was noted and repair was not necessary. All counts of instruments and sponges are correct. Mom is in stable condition. Mom is planning to breastfeed and has chosen to name her son ABDULAZIZ SWAN DO Feb 22, 2021 23:24
[2021-02-23 00:12] VITALS: BP 114/56
[2021-02-23 01:05] VITALS: BP 115/57
[2021-02-23 05:59] VITALS: BP 105/88
[2021-02-23] MEDS: PRENATAL VITAMINS CHEWABLE TABLET PO SCH (07:18)
[2021-02-23] MEDS: IBUPROFEN 800 MG TAB PO PRN ×2 (09:47→20:19)
--- NOTE | 2021-02-23 11:37 | IPNPDOC ---
Progress Note Date of Service: Feb 23, 2021 Day#: 1 Progress Note SUBJECT: Status post . She has been ambulating, voiding spontaneously without issue and tolerating regular diet. Lochia decreasing/minimal. Pain is well-controlled. Denies headache, visual changes, right upper quadrant pain, shortness breath or chest pain. OBJECTIVE: VITAL SIGNS: Within normal limits, afebrile. Alert and oriented times three. Abdomen: Fundus firm at U-2. Soft, NTTP. ASSESSMENT: Status post uncomplicated spontaneous vaginal delivery. Vitals within normal limits, afebrile, hemodynamically stable with no evidence of infection. PLAN: Discharge to home tomorrow Tylenol and Motrin for pain. Routine instructions/precautions reviewed. Routine PP visit in 6 weeks in clinic. VS, I&O, 24H, Fishbone Vital Signs/I&O Vital Signs Date Time Temp Pulse Resp B/P (MAP) Pulse Ox O2 Delivery O2 Flow Rate FiO2 02/23/21 05:59 97.4 88 18 105/88 (94) 98 Room Air I&O- Last 24 Hours up to 6 AM 02/23/21 05:59 Intake Total 1098 ml Output Total 900 ml Balance 198 ml Laboratory Data 24H LABS Laboratory Tests 2 02/22/21 18:18: Serology Scanned Report Hepatitis B Testing 02/22/21 18:37: Nucleated Red Blood Cells % (auto) 0.0 02/22/21 18:39: Coronavirus (COVID-19)(PCR) NEGATIVE CBC/BMP Laboratory Tests 02/22/21 18:37 ABDULAZIZ SYKES DO Feb 23, 2021 11:37
[2021-02-23 17:51] VITALS: BP 113/72
[2021-02-24 06:00] VITALS: BP 122/71
[2021-02-24] MEDS: PRENATAL VITAMINS CHEWABLE TABLET PO SCH (07:25)
[2021-02-24] MEDS: IBUPROFEN 800 MG TAB PO PRN (09:36)
[2021-02-24] MEDS ORDERED: IBUP80TA PO (11:04)
[2021-02-24] MEDS ORDERED: ACET-683 PO (11:04)
== END 2021-02-24 11:47 | disposition home or self-care (01) | DRG 807 ==
LOC: M LDO 17:13 → M LDI 18:10 → M OBS 02-23 01:00
PROVIDERS: ADMIT Obstetrics & Gynecology; ATTEND Obstetrics & Gynecology
PROC: 10E0XZZ Delivery of Products of Conception, External Approach (ICD-10-PCS; principal; 2021-02-22)
PROC: 10907ZC Drainage of Amniotic Fluid, Therapeutic from Products of Conception, Via Natural or Artificial Opening (ICD-10-PCS; 2021-02-22)
DX: O80 Encounter for full-term uncomplicated delivery (principal); Z37.0 Single live birth; Z3A.38 38 weeks gestation of pregnancy

== ENCOUNTER → 2022-01-14 | Outpatient (REF) | payer OTHER ==
[~2022-01-14] MED LIST changes: +ACET-683 PO; +IBUP80TA PO
== END ==
LOC: M SFHCWAGY 17:08
PROVIDERS: ATTEND Nurse Practitioner Family
DX: Z12.4 Encounter for screening for malignant neoplasm of cervix (principal); Z77.9 Other contact with and (suspected) exposures hazardous to health; R87.615 Unsatisfactory cytologic smear of cervix
CPT/HCPCS: 87624; G0123

== ENCOUNTER → 2022-04-24 | Outpatient (REF) | payer OTHER | LOC: M PLALAB 13:12 | PROVIDERS: ATTEND Nurse Practitioner Family | DX: R87.610 Atypical squamous cells of undetermined significance on cytologic smear of cervix (ASC-US) (principal); Z12.4 Encounter for screening for malignant neoplasm of cervix | CPT/HCPCS: 87624; G0123 ==

== ENCOUNTER → 2023-01-28 | Outpatient (REF) | payer OTHER | LOC: M SFHCWAGY 12:55 | PROVIDERS: ATTEND Nurse Practitioner Family | DX: Z12.4 Encounter for screening for malignant neoplasm of cervix (principal); R85.610 Atypical squamous cells of undetermined significance on cytologic smear of anus (ASC-US) ==

== ENCOUNTER → 2024-07-04 | Outpatient (CLI) | payer OTHER ==
[2024-07-04 19:00] LABS: BASO # 0.1 10^3/uL (0.0-0.2); EOS # 0.1 10^3/uL (0.0-0.5); EOS % 1.3 % (0.0-3.0); HEMATOCRIT 36.8 % (36.0-47.0); HEMOGLOBIN 11.9 g/dl (12.0-15.5); LYMPH % 32.8 % (24.0-44.0); MEAN CORPUSCULAR HGB CONC 32.3 g/dl (32.0-36.5); MEAN CORPUSCULAR VOLUME 92.7 fl (80.0-96.0); MONO # 0.4 10^3/uL (0.0-0.8); MONO % 6.4 % (2.0-8.0); NEUTROPHILS # 3.5 10^3/uL (1.5-8.5); NEUTROPHILS % 58.3 % (36.0-66.0); PLATELET COUNT, AUTOMATED 186 10^3/uL (150-450); RED BLOOD COUNT 3.97 10^6/uL (4.00-5.40); WHITE BLOOD COUNT 6.1 10^3/uL (4.0-10.0)
[2024-07-04 19:08] LABS: C REACTIVE PROTEIN QUANTITATIV < 0.50 MG/DL (<1.0); IRON (FE) 116 UG/DL (50-170); PERCENT SATURATION 38.4 % (13.2-45.0); RHEUMATOID FACTOR QUANT 3.6 IU/ML (<14); TOTAL IRON BINDING CAPACITY 302 UG/DL (250-425)
[2024-07-04 19:09] LABS: ALBUMIN 3.9 G/DL (3.2-5.2); ALKALINE PHOSPHATASE 39 U/L (35-104); ALT/SGPT 11 U/L (7.0-40); AST/SGOT 13 U/L (<34); BILIRUBIN,TOTAL 0.4 MG/DL (0.3-1.2); BLOOD UREA NITROGEN 12 MG/DL (9-23); CALCIUM LEVEL 8.9 MG/DL (8.5-10.1); CARBON DIOXIDE LEVEL 26 MMOL/L (20-31); CHLORIDE LEVEL 108 MMOL/L (98-107); CREATININE FOR GFR 0.67 MG/DL (0.55-1.30); GLOMERULAR FILTRATION RATE > 60.0 (>60); GLUCOSE, FASTING 101 MG/DL (60-100); POTASSIUM SERUM 4.2 MMOL/L (3.5-5.1); SODIUM LEVEL 141 MMOL/L (136-145); TOTAL PROTEIN 6.6 G/DL (5.7-8.2)
[2024-07-04 19:10] LABS: FREE T4 1.22 NG/DL (0.89-1.76); THYROID STIMULATING HORMONE 0.938 uIU/ML (0.55-4.78)
[2024-07-04 19:11] LABS: ERYTHROCYTE SEDIMENTATION RATE < 1 mm/hr (0-20); FERRITIN 26.7 NG/ML (7.3-270.7); TOTAL 25(OH) VITAMIN D 27.5 NG/ML (20.0-100.0)
== END ==
LOC: M WUC 14:29
DX: R53.82 Chronic fatigue, unspecified (principal); H04.123 Dry eye syndrome of bilateral lacrimal glands

== ENCOUNTER → 2024-10-23 | Outpatient (CLI) | payer OTHER ==
[2024-10-23 18:43] LABS: BASO # 0.1 10^3/uL (0.0-0.2); BASO % 0.7 % (0.0-1.0); EOS # 0.1 10^3/uL (0.0-0.5); EOS % 1.2 % (0.0-3.0); LYMPH # 2.3 10^3/uL (1.5-5.0); LYMPH % 31.2 % (24.0-44.0); MONO # 0.6 10^3/uL (0.0-0.8); MONO % 8.2 % (2.0-8.0); NEUTROPHILS # 4.4 10^3/uL (1.5-8.5); NEUTROPHILS % 58.4 % (36.0-66.0); PLATELET COUNT, AUTOMATED 200 10^3/uL (150-450)
[2024-10-23 18:49] LABS: IRON (FE) 128.0 UG/DL (50-170)
[2024-10-23 18:50] LABS: PERCENT SATURATION 40.6 % (13.2-45.0)
== END ==
LOC: M WUC 13:49
DX: D50.8 Other iron deficiency anemias (principal)

== ENCOUNTER → 2025-02-06 | Outpatient (CLI) | payer OTHER ==
[2025-02-06 15:02] LABS: BASO # 0.0 10^3/uL (0.0-0.2); BASO % 0.8 % (0.0-1.0); EOS # 0.1 10^3/uL (0.0-0.5); EOS % 1.0 % (0.0-3.0); LYMPH # 1.7 10^3/uL (1.5-5.0); LYMPH % 32.3 % (24.0-44.0); MONO # 0.4 10^3/uL (0.0-0.8); MONO % 7.6 % (2.0-8.0); NEUTROPHILS # 3.1 10^3/uL (1.5-8.5); NEUTROPHILS % 58.1 % (36.0-66.0); PLATELET COUNT, AUTOMATED 193 10^3/uL (150-450)
[2025-02-06 15:05] LABS: IRON (FE) 116.0 UG/DL (50-170)
[2025-02-06 15:06] LABS: PERCENT SATURATION 38.7 % (13.2-45.0)
== END ==
LOC: M WUC 12:01
DX: D50.8 Other iron deficiency anemias (principal)